=== PATIENT | female | born 1985 | race Caucasian/White ===

== ENCOUNTER → 2020-02-06 | Outpatient (CLI) | payer BC ==
--- NOTE | 2020-02-13 14:06 | REP ---
LEFT FOOT SERIES CLINICAL: Left foot mass. TECHNIQUE: AP, lateral, and bilateral oblique views of the left foot. FINDINGS: The osseous structures and joint spaces are intact and normal. The surrounding soft tissues are grossly unremarkable. Lateral view demonstrates a small calcaneal heel spur. No obvious mass lesion is appreciated. IMPRESSION: Essentially normal left foot radiograph series. No obvious mass lesion appreciated. If clinically warranted, consider directed ultrasound examination to evaluate for possible fluid collection versus mass. MTDD
== END ==
LOC: M LRY 10:44
PROVIDERS: ATTEND Nurse Practitioner Family
DX: M77.32 Calcaneal spur, left foot (principal)